=== PATIENT | male | born 1940 | race Caucasian/White ===

== ENCOUNTER 2017-05-16 05:21 | Inpatient (IN) | payer OTHER, MEDICARE ==
[2017-05-10 13:34] LABS: HEMATOCRIT 43.8 % (42.0-52.0); HEMOGLOBIN 14.9 gm/dL (14.0-18.0); MCH 33.7 pg (26.0-34.0); MCV 99.1 fL (80.0-100.0); RBC 4.42 mil/uL (4.50-6.00); RDW 13.1 % (10.5-14.5); WBC 6.5 thou/uL (4.0-11.0)
[2017-05-10 13:41] LABS: URINE BILIRUBIN NEGATIVE (Negative); URINE BLOOD NEGATIVE (Negative); URINE CLARITY CLEAR; URINE COLOR YELLOW; URINE GLUCOSE-RANDOM* NEGATIVE (Negative); URINE KETONES NEGATIVE (Negative); URINE LEUKOCYTES NEGATIVE (Negative); URINE NITRITE NEGATIVE (Negative); URINE PROTEIN (DIPSTICK) NEGATIVE (Negative); URINE UROBILINOGEN 0.2 E.U./dl (0.2-1.0)
[2017-05-10 13:51] LABS: APTT 28.7 Seconds (24.5-32.8); PROTIME 10.7 Seconds (9.3-11.4)
[2017-05-10 13:53] LABS: ALBUMIN 3.2 g/dL (3.4-5.0); CALCIUM 8.9 mg/dL (8.5-10.1); CREATININE 1.4 mg/dL (0.7-1.3); TOTAL BILIRUBIN 0.4 mg/dL (<0.1-1.0); TOTAL PROTEIN 6.4 g/dL (6.4-8.2)
[~2017-05-16] VITALS: Ht 182.9 cm; Wt 98.9 kg
[2017-05-16] VITALS (25 sets, daily range): BP systolic 113–166; BP diastolic 61–97
--- NOTE | ~2017-05-16 | O ---
[facility] [place] [address] OPERATIVE REPORT Name: RAMIREZ LEE Room #: 241-P [facility] IN ..#: [id number] Admission: 05/16/17 Attend Phys: Elio Walker MD Discharge: 05/17/17 Date of : 38 Report #: [id number] THIS REPORT FOR: //name// CC: Lizbeth Walker DATE OF SERVICE: 05/16/2017 PREOPERATIVE DIAGNOSES: Left common femoral artery stenosis, left lower extremity claudication. POSTOPERATIVE DIAGNOSES: Left common femoral artery stenosis, left lower extremity claudication. OPERATIVE PROCEDURE PERFORMED: Left common femoral endarterectomy with bovine pericardial patch angioplasty closure. SURGEON: Elio Walker MD. LEAD WORKER OF HOUSEKEEPING AND LAUNDRY: Alexandra Irving. ANESTHESIA: General. OPERATIVE INDICATIONS: The patient is a 76-year-old male who has presented with leg pain with ambulation consistent with claudication. He experiences both thigh and calf claudication. He denies any rest pain. His evaluation has included angiography showing evidence of severe peripheral vascular disease involving the area of the common femoral artery that was felt not to be appropriate for stenting. The patient is thus admitted and brought to the operating room now for common femoral endarterectomy. OPERATIVE SUMMARY: The patient was brought into the operating room, placed on the OR table in supine position. After anesthesia was induced via the general endotracheal route and monitoring lines have been positioned, the patient was prepped and draped in sterile fashion with chlorhexidine. An oblique incision was made in the left groin. Dissection was carried down through the subcutaneous fat to dissect free the contents of the femoral sheaths. I identified the common profunda and superficial femoral arteries and dissected it free from surrounding tissue. The patient was given 15,000 units of intravenous heparin. The superficial and profunda femoral arteries were controlled with clamp as was the common femoral artery. A common femoral arteriotomy was made and extended both proximally and then distally into the superficial femoral artery. We then dissected the plaque from the vessel wall distal. There was reasonably good tapering, but the plaque did continue on into the superficial femoral artery for some distance. There was good tapering to the profunda [facility] [address] [place] [address] OPERATIVE REPORT Name: ROSARAMIREZ Chau Room #: 241-P [facility] IN .R.#: [id number] Admission: 05/16/17 Attend Phys: Elio Walker MD Discharge: 05/17/17 Date of : 38 Report #: [id number] femoral arteries and proximally, we debrided all atherosclerotic plaque as far as physically possible. All loose fronds were debrided from the vessel wall under loupe magnification and saline irrigation. We then closed the arteriotomy using a patch and 5-0 Prolene suture. This was a bovine pericardial patch. Prior to completing this closure, the site was flushed both antegrade and retrograde. It was deaired by releasing the clamps on the profunda femoris artery. We then released the clamp on the common femoral artery and then finally, the superficial femoral artery. Protamine was given to reverse the heparin, 2 or 3 repair sutures were needed on the suture line and the heparin was reversed with protamine. Hemostasis was achieved with direct pressure as well as topical Surgicel. Doppler signals were good in the profunda femoral and superficial femoral artery. Once appropriate hemostasis was achieved, we closed the wound in multiple layers with absorbable suture. The procedure was completed. The patient was taken to the Postanesthesia Care Unit in stable condition. He was noted to have a palpable posterior tibial pulse and a warm foot at the completion of this procedure. <ELECTRONICALLY SIGNED> By: Elio Walker MD 05/29/17 1021 1615 1709 Elio Walker MD /nt
--- NOTE | ~2017-05-16 | S ---
[facility] [place] [address] SURGICAL PATH RPT PROCEDURE Name: SID CHANG Room #: 241-P [facility] IN M.R.#: [id number] Admission: 05/16/17 Date of : 38 Discharge: 05/17/17 Report #: [id number] Path Case #: [id number] PATHOLOGY REPORT COLLECTION DATE: 05/16/2017 RECEIVED DATE: 05/16/2017 SUBMITTING PHYS: Dr. Elio Walker OTHER PHYS: SPECIMEN(S) RECEIVED: A.Left femoral endartorectomy * * * * * * * * * * * * FINAL DIAGNOSIS: Left femoral endarterectomy: - Marked calcific sclerosis. (IUV:armando; 05/17/2017) PATHOLOGIST: Nichelle Harry M.D. REPORT ELECTRONICALLY SIGNED BY: Nichelle Harry M.D. DATE/TIME: 05/17/2017 16:58 * * * * * * * * * * * * GROSS PATHOLOGY: The specimen is received in formalin labeled "Sid Chang, left femoral endarterectomy". Received is a tubular segment of calcified yellow-fernandez rubbery tissue measuring 4.5 cm in length by 1.2 cm in diameter. The specimen is submitted representatively in cassette A1, following decalcification. (CAA; 05/16/2017) CLINICAL HISTORY: Left calf claudication, left common artery stenosis INITIAL CPT CODE(S): A; 19177 Professional services performed by [facility] at [facility] [address], [place] [address] Technical services performed by [facility] at [address] [place] [address], [facility] [address], [place] [address]. Lizbeth Andujar MD [facility] [address] [place] [address] SURGICAL PATH RPT PROCEDURE Name: SID CHANG Room #: 241-P [facility] IN M.R.#: [id number] Admission: 05/16/17 Date of : 38 Discharge: 05/17/17 Report #: [id number] Path Case #: [id number] [address] PHONE: [phone] DIRECTOR: Yair Garcia M.D. * * * END OF REPORT * * *
--- NOTE | ~2017-05-16 | EKG ---
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 HOFF : 1940 Requested By: Elio Walker Order Number: [id number] MD: Logan Garrett Measurements Intervals [address] Rate: 54 P: 49 AL: 158 QRS: 53 QRSD: 91 T: 51 QT: 410 QTc: 389 Interpretive Statements Sinus bradycardia Otherwise no significant abnormality Compared to ECG 08/13/2009 10:07:47 No significant change was found Electronically Signed On 05-10-2017 16:08:38 TOWER ERECTOR HELPER by Logan Garrett [email or web address] <ELECTRONICALLY SIGNED> By: Logan Garrett MD, [facility] 05/10/17 1608 1301 1301 Logan Garrett MD, FACC /EPI
[~2017-05-16 05:21] MED LIST: ASPIRIN325 PO; CENTRUM SILVER1 EAC4 PO; COREG6.25 MG PO; FISH OIL 1,001000 M2 PO; LIPITOR40 MG PO; LISINOPRIL10 MG PO; MECLIZINE HCL25 M1 PO; NORVASC10 MG PO; PLAVIX 75 MG TA75 MG PO; TRIAMTERENE-HC1 EAC2 PO; VALIUM2 MG PO; ZOCOR 10 MG TAB10 MG PO; ZOFRAN4 MG PO
[2017-05-17] VITALS (21 sets, daily range): BP systolic 99–144; BP diastolic 49–84
[2017-05-17 05:21] LABS: HEMATOCRIT 38.5 % (42.0-52.0); HEMOGLOBIN 13.1 gm/dL (14.0-18.0); MCH 33.6 pg (26.0-34.0); MCHC 33.9 g/dL (28.0-37.0); MCV 99.1 fL (80.0-100.0); RBC 3.88 mil/uL (4.50-6.00); WBC 12.3 thou/uL (4.0-11.0)
[2017-05-17 05:31] LABS: CALCIUM 8.3 mg/dL (8.5-10.1); CREATININE 1.1 mg/dL (0.7-1.3); POTASSIUM 4.6 mmol/L (3.5-5.1)
[2017-05-17] MEDS ORDERED: ASPIRIN325 PO (11:42)
[2017-05-17] MEDS ORDERED: NORCO 5-325 TA1 EACH PO (11:44)
== END 2017-05-17 15:36 | disposition home or self-care (01) | DRG 253 ==
LOC: TBA 05:21 → ICU 05:21 → PRE 05:31 → ICU 13:07 → PRE 13:56 → ENTRNSPT 05-17 15:17 → EDTRNSPTSTS 05-17 15:31 → ICU 05-17 15:36
PROVIDERS: Nurse Practitioner; Thoracic Surgery (Cardiothoracic Vascular Surgery)
PROC: 04CL0ZZ Extirpation of Matter from Left Femoral Artery, Open Approach (ICD-10-PCS; principal; 2017-05-16)
PROC: 04UL0KZ Supplement Left Femoral Artery with Nonautologous Tissue Substitute, Open Approach (ICD-10-PCS; principal; 2017-05-16)
DX: I70.212 Atherosclerosis of native arteries of extremities with intermittent claudication, left leg (principal); D62 Acute posthemorrhagic anemia; E44.1 Mild protein-calorie malnutrition; I10 Essential (primary) hypertension; I25.10 Atherosclerotic heart disease of native coronary artery without angina pectoris; Z79.82 Long term (current) use of aspirin; Z79.899 Other long term (current) drug therapy; Z68.29 Body mass index [BMI] 29.0-29.9, adult
CPT/HCPCS: 10078; 50010; 50101; 50386; 50417; 50455; 51301; 52279; 56524; 56527; 56639; 62110; 62900; 70005

== ENCOUNTER → 2018-04-09 | Outpatient (CLI) | payer OTHER, MEDICARE ==
[~2018-04-09] MED LIST changes: +NORCO 5-325 TA1 EACH PO
== END ==
LOC: NUC 03-13 12:24
DX: Z53.8 Procedure and treatment not carried out for other reasons (principal)

== ENCOUNTER → 2018-04-10 | Outpatient (CLI) | payer OTHER, MEDICARE | LOC: NUC 08:09 | DX: I25.10 Atherosclerotic heart disease of native coronary artery without angina pectoris (principal); I10 Essential (primary) hypertension; E78.5 Hyperlipidemia, unspecified; Z87.891 Personal history of nicotine dependence ==